=== PATIENT | female | born 1950 | race Caucasian/White ===

== ENCOUNTER 2018-11-23 12:45 | Emergency (ER) | payer MEDICARE, OTHER | END 2018-11-23 19:05 | disposition home or self-care (01) | LOC: E/R 12:45 | DX: R42 Dizziness and giddiness (principal); R07.89 Other chest pain; I10 Essential (primary) hypertension; Z79.82 Long term (current) use of aspirin | CPT/HCPCS: 36415; 71045; 80048; 84484; 85025; 93005; 99285-25 ==